=== PATIENT | male | born 1950 | race Caucasian/White ===

== ENCOUNTER 2021-12-27 10:41 | Emergency (ER) | payer MEDICARE ==
[~2021-12-27] VITALS: Ht 170.2 cm; Wt 79.5 kg
[2021-12-27 10:45] VITALS: BP 160/69; TEMP 97.8
[2021-12-27] MEDS ORDERED: FLEXERIL 1010 MG/TAB PO (11:32)
[2021-12-27] MEDS ORDERED: NAPROSYN500 MG PO (11:32)
[2021-12-27 12:20] VITALS: PULSE 87
--- NOTE | 2021-12-28 13:27 | NUR ---
*late entry* Patient recently moved here from [place] to live with his daughter. Patient reports that he does not currently have a PCP but is service connect through the [place]. Educated patient that the closest [facility] be [place] but that [place] has a [facility]. Information for ERIC Dsouza at the [facility] provided to the patient so he can get a PCP established in [place]. Valente Mckeon resource guide provided to the patient.
== END 2021-12-27 12:20 | disposition home or self-care (01) ==
LOC: COL.ER 10:41
DX: G89.29 Other chronic pain (principal); M54.9 Dorsalgia, unspecified; R10.9 Unspecified abdominal pain; F41.9 Anxiety disorder, unspecified; G47.00 Insomnia, unspecified
CPT/HCPCS: J1885

== ENCOUNTER 2022-01-15 19:35 | Inpatient (IN) | payer MEDICARE ==
[~2022-01-15] VITALS: Ht 170.2 cm; Wt 76.7 kg
[~2022-01-15 19:35] MED LIST: FLEXERIL 1010 MG/TAB PO; NAPROSYN500 MG PO
[2022-01-15] MEDS ORDERED: NEURONTIN300 MG/CAP (20:05)
[2022-01-15] MEDS ORDERED: BUSPAR5 MG (20:05)
[2022-01-15] MEDS ORDERED: ZOLOFT 100MG100 MG (20:05)
[2022-01-15 20:58] LABS: BASO % 0.1 % (0.0-2.0); EOS % 0.2 % (0.0-4.0); GRAN # 9.2 K/mm3 (1.4-6.5); GRAN % 82.9 % (42.2-75.2); LYMPH # 1.2 K/mm3 (1.2-3.4); LYMPH % 11.1 % (20.0-51.0); MEAN CELL VOLUME 102 fl (80.0-100.0); MEAN CORPUSCULAR HGB CONC 31 g/dl (33.0-37.0); MEAN PLATELET VOLUME 9.5 fl (7.4-10.4); MONO # 0.5 K/mm3 (0.1-0.6); MONO % 4.6 % (1.7-9.3); PLATELET COUNT 300 K/mm3 (130-400); RED BLOOD COUNT 1.48 M/mm3 (4.20-5.60)
[2022-01-15 20:59] LABS: HEMATOCRIT 15.1 % (42.0-52.0); HEMOGLOBIN 4.6 g/dl (13.5-18.0); MEAN CORPUSCULAR HEMOGLOBIN 31 pg (27-31)
[2022-01-15 21:03] LABS: INR 1.3 (0.8-3.0)
[2022-01-15 21:13] LABS: ALBUMIN 2.9 gm/dL (3.4-4.8); BILIRUBIN,TOTAL 0.2 mg/dL (0.2-1.2); CALCIUM 10.3 mg/dL (8.4-10.2); CREATININE, serum 1.81 mg/dL (0.72-1.25); POTASSIUM 3.1 mmol/L (3.5-4.5); TOTAL PROTEIN 5.6 gm/dL (6.2-8.1)
[2022-01-15 22:37] LABS: COLLECTION METHOD CLEAN CATCH
[2022-01-15 22:47] LABS: MUCOUS Present (NOT PRESENT); PH 5 (5-8); SQUAMOUS EPITHELIAL 0-2 /hpf (0-10); URINE APPEARANCE Hazy (CLEAR/HAZY); URINE BACTERIA Rare /hpf (NONE SEEN); URINE BILIRUBIN Negative (NEGATIVE); URINE BLOOD Negative (NEGATIVE); URINE COLOR Yellow (YELLOW); URINE GLUCOSE Negative (NEGATIVE); URINE KETONE Negative (NEGATIVE); URINE LEUKOCYTE ESTERASE Negative (NEGATIVE); URINE NITRATE Negative (NEGATIVE); URINE PROTEIN(semi-quant) 1+ (NEGATIVE); URINE RBC 0-2 /hpf (0-2); URINE UROBILINOGEN Negative (NEGATIVE)
[2022-01-15] MEDS ORDERED: SEROQUEL300 MG PO (23:06)
[2022-01-15] MEDS ORDERED: BUSPAR DIVIDOSE15 MG PO (23:07)
[2022-01-15] MEDS ORDERED: ZOLOFT 100MG100 MG PO (23:07)
[2022-01-15] MEDS ORDERED: NEURONTIN300 MG/CAP PO (23:08)
[2022-01-15 23:14] LABS: MAGNESIUM 1.5 mg/dL (1.6-2.6); PHOSPHOROUS 3.4 mg/dL (2.3-4.7)
[2022-01-16] VITALS (1256 sets, daily range): BP systolic 101–168; BP diastolic 49–95; PULSE 71–100; TEMP 96.6–98.5; O2SAT 32–100
[2022-01-16 09:41] LABS: BASO % 0.2 % (0.0-2.0); EOS % 0.2 % (0.0-4.0); GRAN # 7.1 K/mm3 (1.4-6.5); GRAN % 67.8 % (42.2-75.2); LYMPH # 2.7 K/mm3 (1.2-3.4); LYMPH % 25.8 % (20.0-51.0); MEAN CORPUSCULAR HGB CONC 32 g/dl (33.0-37.0); MEAN PLATELET VOLUME 9.7 fl (7.4-10.4); MONO # 0.5 K/mm3 (0.1-0.6); MONO % 5.2 % (1.7-9.3); PLATELET COUNT 217 K/mm3 (130-400); RED BLOOD COUNT 2.44 M/mm3 (4.20-5.60); REDCELL DISTRIBUTION WIDTH-CV 16.5 % (11.5-14.5)
[2022-01-16 09:47] LABS: HEMATOCRIT 22.5 % (42.0-52.0); HEMOGLOBIN 7.2 g/dl (13.5-18.0); MEAN CELL VOLUME 92 fl (80.0-100.0); MEAN CORPUSCULAR HEMOGLOBIN 30 pg (27-31)
[2022-01-16 09:57] LABS: CREATININE, serum 1.33 mg/dL (0.72-1.25); MAGNESIUM 1.8 mg/dL (1.6-2.6); POTASSIUM 3.6 mmol/L (3.5-4.5)
--- NOTE | 2022-01-16 10:53 | NUR ---
Updated Dr. Kiser on H&H after [address] Kiser will update this nurse on POC as needed.
--- NOTE | 2022-01-16 11:30 | NUR ---
PT scheduled for endoscopy at 1400- instrument repair supervisor has been notified of after hour procedure. Shon Vazquez RN has everything scheduled and all parties notified. Consent is signed.
--- NOTE | 2022-01-16 11:33 | NUR ---
Rica with US completed ECHO bedside.
--- NOTE | 2022-01-16 13:45 | NUR ---
Wet Suit Gluer offered prayer and support with patient.
--- NOTE | 2022-01-16 14:00 | NUR ---
Dr. Kiser is bed side with KATHERINE Garcia and Nurse. Dr. Kiser decided to do the endoscopy bedisde ICU05. Time out:1400 by Endoscopy team Nurse, comfirmed procedure, patient, consent. 1406- Sedation started, See AA report 1408- Procedure started, see physician report 1413- procedure complete- monitored by AA. 1418- Anesthesia end time. VSS- PT is awake and alert, complaining of testicular pain.
--- NOTE | 2022-01-16 15:32 | NUR ---
workers compensation adjuster met with patient to complete intake. Patient currently lives with his daughter in [place] but moved here from [place] within the past 6 months. Patient reports to being independent with his ADL's and utilizes a cane to assist with mobility. Patient has no home oxygen needs. He has not established a PCP since arriving here. States that he get's his medications through [facility] and that his insurance manages it. Patient reports that he does not have a DPOA-HC established. He is currently living with his shari Brigette ([phone]).
[2022-01-16 16:35] LABS: HEMATOCRIT 22.2 % (42.0-52.0); HEMOGLOBIN 7.4 g/dl (13.5-18.0)
--- NOTE | 2022-01-16 20:00 | NUR ---
PM ASSESSMENT COMPLETE. PT SITTING UP IN BED, AWAKE AND ALERT, RESTING COMFORTABLY. DENIES PAIN. STATES FEELS MUCH BETTER THAN PREVIOUS. FINISHED CLEAR LIQUID DIET FOR DINNER, TOLERATED WELL. NO FURTHER STOOLS REPORTED. DISCUSSED POC AND MEDS. PT STATES NO QUESTIONS OR CONCERNS. BED ALARM SET FOR SAFETY. PT VOIDING PER URINAL WITHOUT INCIDENT. WILL CONTINUE TO MONITOR.
[2022-01-16 23:46] LABS: HEMATOCRIT 20.2 % (42.0-52.0); HEMOGLOBIN 6.4 g/dl (13.5-18.0)
[2022-01-17] VITALS (639 sets, daily range): BP systolic 106–150; BP diastolic 69–83; PULSE 60–82; TEMP 97.7–98.8; O2SAT 48–100
--- NOTE | 2022-01-17 00:35 | NUR ---
PRBCS INFUSING VIA L A/C PIV, STARTED AT 0020. RN STAYED FOR FIRST 15 MINUTES, NO S/S OF TRANSFUSION REACTION. VSS. WILL CONTINUE TO MONITOR.
--- NOTE | 2022-01-17 03:30 | NUR ---
PRBC UNIT COMPLETE. PT TOLERATED WITHOUT INCIDENCE. WILL CONTINUE TO MONITOR.
[2022-01-17 05:38] LABS: BASO % 0.5 % (0.0-2.0); EOS # 0.3 K/mm3 (0.0-0.7); EOS % 3.2 % (0.0-4.0); GRAN # 5.2 K/mm3 (1.4-6.5); LYMPH # 2.5 K/mm3 (1.2-3.4); LYMPH % 29.5 % (20.0-51.0); MEAN CELL VOLUME 90 fl (80.0-100.0); MEAN CORPUSCULAR HGB CONC 32 g/dl (33.0-37.0); MEAN PLATELET VOLUME 10.1 fl (7.4-10.4); MONO # 0.5 K/mm3 (0.1-0.6); MONO % 5.3 % (1.7-9.3); PLATELET COUNT 212 K/mm3 (130-400); RED BLOOD COUNT 3.01 M/mm3 (4.20-5.60); REDCELL DISTRIBUTION WIDTH-CV 17.5 % (11.5-14.5)
[2022-01-17 05:40] LABS: HEMOGLOBIN 8.7 g/dl (13.5-18.0); MEAN CORPUSCULAR HEMOGLOBIN 29 pg (27-31)
[2022-01-17 05:41] LABS: HEMATOCRIT 27.2 % (42.0-52.0)
[2022-01-17 05:42] LABS: CALCIUM 8.2 mg/dL (8.4-10.2); CREATININE, serum 1.27 mg/dL (0.72-1.25); MAGNESIUM 1.9 mg/dL (1.6-2.6); POTASSIUM 3.6 mmol/L (3.5-4.5)
--- NOTE | 2022-01-17 07:00 | NUR ---
RECEIVED REPORT FROM CRISTOPHER CASTRO. PT RESTING IN BED ON RA. VSS. CALL LIGHT AND URINAL WITHIN REACH.
--- NOTE | 2022-01-17 22:26 | NUR ---
GAVE REPORT TO CRISTOPHER BAEZ ON MEDICAL AT THIS TIME
[2022-01-18] VITALS (8 sets, daily range): BP systolic 100–119; BP diastolic 47–74; PULSE 83–106; TEMP 97.5–98.5
--- NOTE | 2022-01-18 06:28 | NUR ---
PT ARRIVED TO THE MEDICAL FLOOR AT 2245HRS TO ROOM 357. PT A&O X 4; VSS; O2 RA. PT DENIED CHEST PAIN, PALPITATIONS, N,V,D, SOB OR DIZZINESS. PT COMPLAINED THAT HIS SIDE HURT. HE RATED HIS PAIN AT AN 8, HOWEVER, HE HAD NO PRN PAIN MEDS ON HIS MAR. HOSPITALIST NOTIFIED. HOWEVER, WHEN I WENT IN TO LET HIM KNOW PT WAS FAST ASLEEP. PT EXPRESSED NO OTHER NEEDS. CALL LIGHT WITHIN REACH.
[2022-01-18 06:40] LABS: HEMATOCRIT 24.3 % (42.0-52.0)
[2022-01-18 07:29] LABS: CALCIUM 7.7 mg/dL (8.4-10.2); CREATININE, serum 1.19 mg/dL (0.72-1.25); POTASSIUM 4.5 mmol/L (3.5-4.5)
--- NOTE | 2022-01-18 07:29 | NUR ---
Patient laying in bed upon entering the room. Requested his cell phone from his bad and some breakfast, tray ordered by this RN. Patient denied any pain, but stated that he had 2 episodes of a burning feeling in his abdomen overnight. Overall, patient states he feels great this morning. Reported plan is possible discharge.
[2022-01-18 13:28] LABS: HEMATOCRIT 23.9 % (42.0-52.0); HEMOGLOBIN 7.7 g/dl (13.5-18.0)
--- NOTE | 2022-01-18 17:15 | NUR ---
Patient has done well today. Only c/o pain once in bilateral sides; reports that this is chronic. Patient reported one episode of bloody stool to this RN. Patient asked to save his next BM so it could be assessed.
--- NOTE | 2022-01-18 20:30 | NUR ---
Initial shift assessment done- very pleasant, no requests, was given a HS snack- very appreciative, lab here to draw blood work, pt states does have some chronic hip/leg pain but denies need for meds at this time- tele on NSR
[2022-01-18 20:53] LABS: HEMATOCRIT 23.8 % (42.0-52.0); HEMOGLOBIN 7.6 g/dl (13.5-18.0)
[2022-01-19] VITALS (11 sets, daily range): BP systolic 97–151; BP diastolic 56–72; PULSE 68–95; TEMP 97.4–98.6
--- NOTE | 2022-01-19 04:50 | NUR ---
Has been sleeping well tonight, requesting some hot beef broth and a pain pill- will give broth and his prn Methadone as ordered- states has chronic" all over pain" Dodie PEREZ was made aware at 2300 of repeat Hgb of 7.6- will be rechecked this AM.
[2022-01-19 06:26] LABS: CALCIUM 7.2 mg/dL (8.4-10.2); CREATININE, serum 1.08 mg/dL (0.72-1.25); POTASSIUM 4.7 mmol/L (3.5-4.5)
[2022-01-19 07:02] LABS: BASO % 0.4 % (0.0-2.0); EOS # 0.2 K/mm3 (0.0-0.7); EOS % 1.8 % (0.0-4.0); GRAN # 4.8 K/mm3 (1.4-6.5); GRAN % 58.7 % (42.2-75.2); LYMPH # 2.6 K/mm3 (1.2-3.4); LYMPH % 32.2 % (20.0-51.0); MEAN CELL VOLUME 91 fl (80.0-100.0); MEAN CORPUSCULAR HGB CONC 32 g/dl (33.0-37.0); MEAN PLATELET VOLUME 9.9 fl (7.4-10.4); MONO # 0.5 K/mm3 (0.1-0.6); MONO % 5.8 % (1.7-9.3); PLATELET COUNT 151 K/mm3 (130-400); RED BLOOD COUNT 2.09 M/mm3 (4.20-5.60); REDCELL DISTRIBUTION WIDTH-CV 18.7 % (11.5-14.5)
[2022-01-19 07:08] LABS: MEAN CORPUSCULAR HEMOGLOBIN 29 pg (27-31)
--- NOTE | 2022-01-19 09:56 | NUR ---
Blood transfusion started at 0950, running @ 60ml/hr for first 15mins, RN remaining in room to monitor for reaction w/in first 15mins. Consent previously signed. Patient updated on plan of care, patient is not very happy about this and appears frustrated. Plan at this time is for patient to have an EGD at approx. 1600 w/ Dr. Kiser. Patient made NPO, patient keeps requesting ice water, patient given a sip w/ morning medications.
--- NOTE | 2022-01-19 10:54 | NUR ---
Patient has been tolerating blood transfusion well. Denies any lower back pain, SOB, dizziness, itching, or fever. Transfusion increased from 60mL/hr to 120mL/hr. Patient tolerated this well. Transfusion then increased to 150mL/hr at 1020, then 200mL/hr at 1050. Patient currently resting.
--- NOTE | 2022-01-19 12:08 | NUR ---
Blood transfusion completed. Patient currently resting. VSS. Patient did experience some nausea while hospitalist was rounding. Hospitalist notified this RN and requested zofran be given.
[2022-01-19 13:03] LABS: HEMATOCRIT 23.2 % (42.0-52.0); HEMOGLOBIN 7.3 g/dl (13.5-18.0)
--- NOTE | 2022-01-19 17:30 | NUR ---
This RN received report that the patient would not be coming back to the floor and would be transferred to the ICU d/t active bleeding found during the EGD.
--- NOTE | 2022-01-19 17:59 | NUR ---
PT RECEIVED FROM ENDO. PT IS BEING TRANSFERED TO [facility] IN [place]. EMS IN ROUTE FOR SMOG TECHNICIAN. PT IS AXOX3 BUT SLEEPY. VSS. PT SHOWING SR ON TELE. PT'S DAUGHTER WAS UPDATED BY . PT INSTRUCTED TO CALL WITH ALL NEEDS. COLORECTAL SURGEON ARRANGING TRASNFER PAPERWORK.
--- NOTE | 2022-01-19 18:04 | NUR ---
Nurses report called and given to [facility] Lisa.
--- NOTE | 2022-01-19 18:28 | NUR ---
REPORT CALLED TO ELECTRICAL SYSTEMS ENGINEER AT [facility]. EMS 20 MINS OUT FOR RESIDENTIAL LEASING MANAGER.
[2022-01-19 19:12] LABS: HEMATOCRIT 19.4 % (42.0-52.0)
== END 2022-01-19 19:00 | disposition short-term general hospital (02) | DRG 378 ==
LOC: COL.ER 19:35 → MEDICAL 22:52 → ICU 22:52 → MEDICAL 01-17 11:32 → ICU 01-17 11:32 → MEDICAL 01-17 23:32
PROVIDERS: Internal Medicine; Internal Medicine Gastroenterology; Nurse Practitioner Family; Physician Assistant; Student in an Organized Health Care Education/Training Program; ADMIT Internal Medicine
PROC: 0DB78ZX Excision of Stomach, Pylorus, Via Natural or Artificial Opening Endoscopic, Diagnostic (ICD-10-PCS; principal; 2022-01-16 14:30)
PROC: 3E0G8GC Introduction of Other Therapeutic Substance into Upper GI, Via Natural or Artificial Opening Endoscopic (ICD-10-PCS; 2022-01-19)
PROC: 0W3P8ZZ Control Bleeding in Gastrointestinal Tract, Via Natural or Artificial Opening Endoscopic (ICD-10-PCS; 2022-01-19)
DX: K26.4 Chronic or unspecified duodenal ulcer with hemorrhage (principal); E87.2 Acidosis; D62 Acute posthemorrhagic anemia; N17.9 Acute kidney failure, unspecified; K29.71 Gastritis, unspecified, with bleeding; I11.0 Hypertensive heart disease with heart failure; I50.9 Heart failure, unspecified; B19.20 Unspecified viral hepatitis C without hepatic coma; G89.29 Other chronic pain; Z66 Do not resuscitate; F32.A Depression, unspecified; F41.9 Anxiety disorder, unspecified; F43.10 Post-traumatic stress disorder, unspecified; E87.6 Hypokalemia; E11.65 Type 2 diabetes mellitus with hyperglycemia; E83.42 Hypomagnesemia; D72.829 Elevated white blood cell count, unspecified; F15.10 Other stimulant abuse, uncomplicated; F11.10 Opioid abuse, uncomplicated; K44.9 Diaphragmatic hernia without obstruction or gangrene; N28.89 Other specified disorders of kidney and ureter; T39.395A Adverse effect of other nonsteroidal anti-inflammatory drugs [NSAID], initial encounter; E83.52 Hypercalcemia; Z87.891 Personal history of nicotine dependence; Z87.442 Personal history of urinary calculi
CPT/HCPCS: 99223-AI; 99232-AI; 99233-AI; 99239; C9113; J0171; J2270; J2405; J2704; J3475; J3480; J7030; P9016